=== PATIENT | female | born 1980 | race Caucasian/White ===

== ENCOUNTER 2018-03-02 06:06 | Inpatient (IN) | payer MEDICAID ==
[2018-03-02 07:18] LABS: ADD MAN DIFF? NO
[2018-03-02 07:22] LABS: BASOPHIL # 0.1 10^3/ul (0.0-0.1); BASOPHILS % 0.7 % (0.0-2.0); EOSINOPHILS # 0.1 10^3/ul (0.0-0.5); EOSINOPHILS % 1.3 % (0.0-7.0); HEMATOCRIT 34.1 % (37.0-47.0); HEMOGLOBIN 11.6 g/dl (12.0-16.0); LYMPHOCYTES % 28.2 % (15.0-51.0); MEAN CORPUSCULAR HEMOGLOBIN 27.6 pg (29.0-33.0); MEAN PLATELET VOLUME 12.2 fl (7.4-10.4); MONOCYTE # 0.6 10^3/ul (0.3-0.9); NEUTROPHIL # 4.3 10^3/ul (1.6-7.5); NEUTROPHILS % 61.5 % (39.0-77.0); PLATELET COUNT 213 10^3/UL (140-415); RED BLOOD COUNT 4.21 10^6/ul (4.20-5.40); RED CELL DISTRIBUTION WIDTH 13.7 % (11.5-14.5)
[2018-03-02] MEDS ORDERED: METHYLERGONOVINE 0.2 MG INJ IM (07:30)
[2018-03-02] MEDS ORDERED: CARBOPROST 250 MCG INJ IM (07:30)
[2018-03-02] MEDS ORDERED: BUTORPHANOL 2 MG INJ IV (07:30)
[2018-03-02] MEDS ORDERED: MISOPROSTOL 200 MCG TAB PR (07:30)
[2018-03-02] MEDS ORDERED: OXYTOCIN 30 UNITS/LR 500 ML IV ×2 (07:30)
[2018-03-02] MEDS ORDERED: IBUPROFEN 600 MG TAB PO (07:30)
[2018-03-02] MEDS ORDERED: HYDROCODONE/APAP (5/325) TAB PO (07:30)
[2018-03-02] MEDS ORDERED: LIDOCAINE 1% (MPF) 30 ML INJ INJ (07:30)
[2018-03-02 07:52] LABS: PROTIME 13.3 Sec (11.9-14.9)
[2018-03-02 07:53] LABS: PARTIAL THROMBOPLASTIN TIME 28.7 Sec (25.0-35.0)
[2018-03-02] MEDS: LACTATED RINGER'S 1,000 ML IV ×2 (07:56→15:06)
[2018-03-02] MEDS: DINOPROSTONE 10 MG VAG SUPP VAG (09:06)
[2018-03-02 19:48] LABS: RAPID PLASMA REAGIN NONREACTIVE (NR)
[2018-03-03] MEDS: LACTATED RINGER'S 1,000 ML IV ×4 (00:52→23:12)
[2018-03-03] MEDS: DINOPROSTONE 10 MG VAG SUPP VAG (02:50)
[2018-03-03] MEDS ORDERED: IBUPROFEN 600 MG TAB PO (08:30)
[2018-03-03] MEDS ORDERED: OXYTOCIN 30 UNITS/LR 500 ML IV (08:30)
[2018-03-03] MEDS ORDERED: CARBOPROST 250 MCG INJ IM (08:30)
[2018-03-03] MEDS ORDERED: LIDOCAINE 1% (MPF) 30 ML INJ INJ (08:30)
[2018-03-03] MEDS ORDERED: METHYLERGONOVINE 0.2 MG INJ IM (08:30)
[2018-03-03] MEDS ORDERED: HYDROCODONE/APAP (5/325) TAB PO ×3 (08:30→18:00)
[2018-03-03] MEDS ORDERED: FENTAnyl 2MCG/ML-ROPIV 0.2% 100 ML (10:25)
[2018-03-03] MEDS ORDERED: NALOXONE (0.4 MG/ML) INJ IV (11:00)
[2018-03-03] MEDS: OXYTOCIN 30 UNITS/LR 500 ML IV ×4 (11:33→20:21)
[2018-03-03] MEDS: FENTAnyl 2MCG/ML-ROPIV 0.2% 100 ML BAG EPI (14:02)
[2018-03-03] MEDS ORDERED: ACETAMINOPHEN 325 MG TAB PO (18:00)
[2018-03-03] MEDS ORDERED: ONDANSETRON 4 MG INJ IV (18:00)
[2018-03-03] MEDS ORDERED: OXYCODONE/ASPIRIN (4.88/325) TAB PO ×2 (18:00)
[2018-03-03] MEDS ORDERED: DIBUCAINE 1% 30 GM OINT PR (18:00)
[2018-03-03] MEDS: IBUPROFEN 600 MG TAB PO ×2 (18:17→23:45)
[2018-03-03] MEDS: WITCH HAZEL/GLYCERIN PAD PR (18:17)
[2018-03-03] MEDS: LANOLIN 7 GM TUBE TOP (18:17)
[2018-03-03] MEDS: BENZOCAINE 20% 56 ML SPRAY TOP (18:18)
[2018-03-03] MEDS: SENNA/DOCUSATE NA (8.6MG/50MG) TAB PO (20:21)
[2018-03-04] MEDS: IBUPROFEN 600 MG TAB PO ×4 (05:31→23:51)
[2018-03-04] MEDS: LACTATED RINGER'S 1,000 ML IV ×2 (07:12→15:12)
[2018-03-04] MEDS: SENNA/DOCUSATE NA (8.6MG/50MG) TAB PO ×2 (09:01→21:20)
[2018-03-04 11:19] LABS: ADD MAN DIFF? NO
[2018-03-04 11:21] LABS: WHITE BLOOD COUNT 12.5 10^3/ul (4.8-10.8)
[2018-03-04 11:21] LABS: BASOPHILS % 0.2 % (0.0-2.0); EOSINOPHILS % 0.2 % (0.0-7.0); HEMATOCRIT 31.7 % (37.0-47.0); HEMOGLOBIN 10.9 g/dl (12.0-16.0); LYMPHOCYTES # 2.2 10^3/ul (0.8-2.9); LYMPHOCYTES % 17.7 % (15.0-51.0); MEAN CORPUSCULAR HEMOGLOBIN 28.2 pg (29.0-33.0); MEAN CORPUSCULAR HGB CONC 34.4 g/dl (32.0-37.0); MEAN CORPUSCULAR VOLUME 82.1 fl (82.0-101.0); MEAN PLATELET VOLUME 12.2 fl (7.4-10.4); MONOCYTE # 0.8 10^3/ul (0.3-0.9); MONOCYTES % 6.5 % (0.0-11.0); NEUTROPHIL # 9.4 10^3/ul (1.6-7.5); NEUTROPHILS % 74.9 % (39.0-77.0); PLATELET COUNT 200 10^3/UL (140-415); RED BLOOD COUNT 3.86 10^6/ul (4.20-5.40); RED CELL DISTRIBUTION WIDTH 13.9 % (11.5-14.5)
[2018-03-05] MEDS: IBUPROFEN 600 MG TAB PO ×2 (05:37→11:15)
[2018-03-05] MEDS: MEASLES,MUMPS,RUBELLA VACCINE INJ SC* (09:00)
[2018-03-05] MEDS: SENNA/DOCUSATE NA (8.6MG/50MG) TAB PO (09:25)
== END 2018-03-05 15:53 | disposition home or self-care (01) | DRG 775 ==
LOC: L-D 06:06 → PP1 03-03 17:30
PROVIDERS: Obstetrics & Gynecology
PROC: 10E0XZZ Delivery of Products of Conception, External Approach (ICD-10-PCS; principal; 2018-03-03)
PROC: 0HQ9XZZ Repair Perineum Skin, External Approach (ICD-10-PCS; 2018-03-03)
PROC: 3E033VJ Introduction of Other Hormone into Peripheral Vein, Percutaneous Approach (ICD-10-PCS; 2018-03-03)
DX: O48.0 Post-term pregnancy (principal); Z3A.40 40 weeks gestation of pregnancy; O69.81X0 Labor and delivery complicated by cord around neck, without compression, not applicable or unspecified; O70.0 First degree perineal laceration during delivery; Z37.0 Single live birth
CPT/HCPCS: 62319; 76815; 85025; 85610; 85730; 86592; 86850; 86900; 86901